=== PATIENT | female | born 1990 | race American Indian/Alaskan Native ===

== ENCOUNTER 2024-05-07 01:03 | Emergency (ER) | payer MEDICAID | END 2024-05-07 02:19 | disposition home or self-care (01) | LOC: JD.ED 01:03 | DX: S71.132A Puncture wound without foreign body, left thigh, initial encounter (principal); F17.210 Nicotine dependence, cigarettes, uncomplicated; Z91.040 Latex allergy status; W54.0XXA Bitten by dog, initial encounter | CPT/HCPCS: 99283 ==